=== PATIENT | male | born 1955 | race Caucasian/White ===

== ENCOUNTER 2020-03-14 15:44 | Emergency (ER) | payer BC ==
--- NOTE | 2020-03-14 17:02 | EDM.PDOC ---
ED HPI GENERAL MEDICAL PROBLEM - General Chief Complaint: Eye Problems Stated Complaint: FB IN RIGHT EYE Time Seen by Provider: 03/14/20 16:56 - History of Present Illness INITIAL COMMENTS - FREE TEXT/NARRATIVE: 64-year-old male presents the emergency room with right eye pain. Patient awoke with this around 6:00 this morning. He was working in [employer] dirty environment yesterday and thought perhaps may be got some in his eye however he did not develop the pain until he woke up with it this morning. He denies any drainage or mattery material on his eye when he tried to open it. Patient denies any other problems. He is uncertain when his last tetanus shot was. Right Eye Pain Score (Numeric/FACES): 6 - Related Data Allergies Allergy/AdvReac Type Severity Reaction Status Date / Time No Known Allergies Allergy Verified 03/14/20 16:06 Home Meds: Home Meds . [No Known Home Meds] 03/14/20 [History] Past Medical History - Past Health History Medical/Surgical History: Denies Medical/Surgical History Social & Family History - Tobacco Use Tobacco Use Status *Q: Never Tobacco User Second Hand Smoke Exposure: No - Caffeine Use Caffeine Use: Reports: Coffee - Recreational Drug Use Recreational Drug Use: No ED ROS GENERAL - Review of Systems Review Of Systems: See Below Constitutional: Reports: No Symptoms HEENT: Reports: Eye Pain, Vertigo Cardiovascular: Reports: No Symptoms GI/Abdominal: Reports: No Symptoms ED EXAM GENERAL W FULL EYE - Physical Exam Exam: See Below Exam Limited By: No Limitations General Appearance: Alert, No Apparent Distress Eye Exam: Right Eye: Conjunctival Injection, Left Eye: Normal Inspection, Bilateral Eye: EOMI Eyelids: Bilateral: Normal Appearance Conjunctiva & Sclera: Right: Conjunctival Edema, Injected Cornea Exam: Right: Corneal Abrasion (At that 10:00 to 12 o'clock position superficial), Examined with Flourescein Extraocular Movements: Bilateral: Intact Pupils: Normal Accommodation Anterior Chamber: Bilateral: Normal Appearance Posterior Chamber: Bilateral: Normal Funduscopic Respiratory/Chest: No Respiratory Distress, Lungs Clear, Normal Breath Sounds Cardiovascular: Regular Rate, Rhythm, No Edema, No Murmur Course - Vital Signs Last Recorded V/S: Last Vital Signs Temp 36.6 C 03/14/20 16:04 Pulse 72 03/14/20 16:04 Resp 16 03/14/20 16:04 BP 158/98 H 03/14/20 16:04 Pulse Ox 97 03/14/20 16:04 - Orders/Labs/Meds Orders: Active Orders 24 hr Category Date Time Status Vaccines to be Administered [RC] PER UNIT ROUTINE Care 03/14/20 17:16 Active Meds: Medications Discontinued Medications Generic Name Dose Route Start Last Admin Trade Name Jose Alejandro PRN Reason Stop Dose Admin Diphtheria/Tetanus/Acell Pertussis 0.5 ml 03/14/20 17:16 03/14/20 17:26 Adacel IM 03/14/20 17:17 0.5 ml .ONCE ONE Administration Erythromycin 1 gm 03/14/20 18:03 Erythromycin 0.5% Ophth Oint EYERT 03/14/20 18:04 ONETIME ONE Fluorescein Sodium 1 mg 03/14/20 17:17 03/14/20 17:57 Ful-Rosa Elena EYEBOTH 03/14/20 17:18 1 mg ONETIME ONE Administration Proparacaine HCl 1 ml 03/14/20 17:19 03/14/20 17:57 Proparacaine 0.5% Ophth Soln EYEBOTH 03/14/20 17:20 1 drop ONETIME ONE Administration Proparacaine HCl Confirm 03/14/20 17:22 03/14/20 17:27 Proparacaine 0.5% Ophth Soln Administered 03/14/20 17:23 Not Given Dose 15 ml .ROUTE .STK-MED ONE - Re-Assessments/Exams Free Text/Narrative Re-Assessment/Exam: 03/14/20 18:14 Superficial fairly good sized corneal abrasion superior portion of the right eye between the 10:00 and 12 o'clock position ovoid in shape. Departure - Departure Time of Disposition: 18:07 Disposition: Home, Self-Care 01 Clinical Impression: Corneal abrasion, right - Discharge Information Referrals: PCP,None [Primary Care Provider] - Forms: ED Department Discharge Additional Instructions: Return to the emergency room with any questions problems or worsening symptoms. You are given the erythromycin ointment use 1/3 to 1/2 inch behind your right lower eyelid every couple hours while awake. This acts as a lubricant for your eye. Your given a prescription for [place], or hydrocodone acetaminophen, this is a pain pill take 1 or 2 every 6 hours as needed for pain. Allow 12 hours after using this medication before driving or returning to work. Follow-up with your eye doctor tomorrow for recheck. Sepsis Event Note (ED) - Evaluation Sepsis Screening Result: No Definite Risk - Focused Exam Vital Signs: Vital Signs Temp Pulse Resp BP Pulse Ox 03/14/20 16:04 36.6 C 72 16 158/98 H 97 - My Orders Last 24 Hours: My Active Orders 03/14/20 17:16 Vaccines to be Administered [RC] PER UNIT ROUTINE - Assessment/Plan Last 24 Hours: My Active Orders 03/14/20 17:16 Vaccines to be Administered [RC] PER UNIT ROUTINE
[2020-03-14] MEDS ORDERED: Diphtheria,Pertussis(Acell),Tetanus Vaccine 0.5 ML Syringe IM ONE (17:16)
[2020-03-14] MEDS ORDERED: Fluorescein 1 MG Ophth Strip EYEBOTH ONE (17:17)
[2020-03-14] MEDS ORDERED: Proparacaine 0.5% Ophth Soln 15 ML Bottle EYEBOTH ONE (17:19)
[2020-03-14] MEDS ORDERED: Proparacaine 0.5% Ophth Soln 15 ML Bottle ONE (17:22)
[2020-03-14] MEDS ORDERED: Erythromycin Base 0.5% Ophth Oint 1 GM Tube EYERT ONE (18:03)
== END 2020-03-14 18:30 | disposition home or self-care (01) ==
LOC: JD.ED 15:44
DX: S05.01XA Injury of conjunctiva and corneal abrasion without foreign body, right eye, initial encounter (principal); Z23 Encounter for immunization; X58.XXXA Exposure to other specified factors, initial encounter
CPT/HCPCS: 90471; 90715; 99283; A9270